=== PATIENT | female | born 1970 | race Caucasian/White ===

== ENCOUNTER → 2022-03-07 | Outpatient (CLI) | payer BC, SELFPAY ==
[2022-03-07 15:53] LABS: EXAGEN MAILED SPECIMEN
[2022-03-07 17:47] LABS: Color, Urine Yellow (Yellow); Glucose, Dipstick Normal (Normal); Ketone-Dipstick Negative (Negative); Leukocyte Esterase-Dipstick Negative /ul (Negative); Nitrite-Dipstick Negative (Negative); Occult Blood-Urine 10 /ul (Negative); Protein-Dipstick Negative (Negative); Urine Bilirubin Dipstick Negative (Negative); Urine Clarity Clear (Clear); Urine Urobilinogen Normal (Normal)
[2022-03-07 17:48] LABS: Absolute Lymphocyte Count 1.76 X10^3/uL (0.83-4.51); Absolute Neutrophil Count 4.7 X10^3/uL (2.0-7.7); Basophil# 0.02 X10^3/uL; Basophil% 0.3 % (0-1); Eosinophil# 0.41 X10^3/uL; Eosinophils% 5.5 % (0-5); Hematocrit 42.1 % (37-47); Hemoglobin 14.1 g/dL (12.0-15.0); Lymphocyte # 1.76 X10^3/ul (0.83-4.51); Lymphocyte % 23.6 % (19-41); Mean Corp Hgb Conc 33.5 g/dL (32-36); Mean Corpuscular Volume 92.5 fL (81-99); Mean Platelet Vol. 9.8 fl (6.2-12.0); Monocyte# 0.52 X10^3/uL; NRBC Flagged by Analyzer 0 % (0-5); Neutrophil # 4.73 X10^3/uL (2.7-7.7); Neutrophil % 63.3 % (47-70); Platelet Count 397 K/mm3 (150-450); RBC Distribution Width CV 12.3 % (11.6-14.6); RBC Distribution Width SD 41.6 fl (35.1-43.9); Red Blood Count 4.55 M/mm3 (4.2-5.4); White Blood Count 7.5 K/mm3 (4.4-11.0)
[2022-03-07 17:50] LABS: Erythrocyte Sedimentation Rate 20 mm/hr (0-30)
[2022-03-07 17:55] LABS: Prothrombin Time (Protime)PT. 13.2 SECONDS (11.7-14.9)
[2022-03-07 17:56] LABS: Partial Thromboplast Time 28.3 Seconds (24.1-36.2)
[2022-03-07 18:02] LABS: Protein, Urine (Random) 17.2 mg/dL (<11.9); Protein:Creat Ratio 251 mg/g CRE (0-200)
[2022-03-07 18:07] LABS: ALB/GLOB Ratio 0.9 RATIO (0.9-2.4); AST(SGOT) 89 U/L (15-37); Alanine Aminotransfer ALT/SGPT 133 U/L (13-56); Albumin, Serum 3.6 g/dL (3.2-5.0); Alkaline Phosphatase 97 U/L (45-117); Anion Gap 7 (5-15); BUN 13 mg/dL (7-18); BUN/Creat Ratio 21.7 RATIO (10-20); Calcium,Total 9.4 mg/dL (8.5-10.1); Chloride 105 mmol/L (98-107); EST Glomerular Filtration Rate 112 mL/min (>60); Est Glom Filt Rate - Afr Amer 135 mL/min (>60); Globulin 4.2 g/dL (2.2-4.2); Glucose 77 mg/dL (74-106); Potassium 3.4 mmol/L (3.5-5.1); Protein, Total 7.8 g/dL (6.4-8.2); Sodium Level 139 mmol/L (136-145)
[2022-03-08 08:46] LABS: Hepatitis B Surface Antibody Reactive; Hepatitis B Surface Antigen Non-Reactive (Nonreactive); Hepatitis C Antibody Non-Reactive (Nonreactive)
[2022-03-13 19:07] LABS: Dilute Prothrombin Time (dPT) 26.2 sec (0.0-47.6); Dilute Russell Viper Venom 32.8 sec (0.0-47.0); Hexagonal Phase Phospholipid 3 sec (0-11); Thrombin Time 18.8 sec (0.0-23.0); dPT Confirm Ratio 1.21 Ratio (0.00-1.34)
[2022-03-14 15:30] LABS: Interpretation Comment: (.)
== END | disposition home or self-care (01) ==
LOC: MTLAB 14:37
PROVIDERS: PCP Family Medicine; Referring Provider Internal Medicine Rheumatology; Visit Provider Internal Medicine Rheumatology
DX: M06.4 Inflammatory polyarthropathy (principal); L50.9 Urticaria, unspecified; R76.8 Other specified abnormal immunological findings in serum; J45.909 Unspecified asthma, uncomplicated; H91.93 Unspecified hearing loss, bilateral; Z92.89 Personal history of other medical treatment
CPT/HCPCS: 36415; 80053; 81002; 82570; 84156; 85025; 85598; 85610; 85652; 85670; 85730; 86140; 86706; 86803; 87340

== ENCOUNTER → 2022-10-26 | Outpatient (CLI) | payer BC, SELFPAY ==
[2022-10-26 11:24] LABS: Synovial Fld Mononuclear WBC # 0.177 10^3/ul; Synovial Fld Mononuclear WBC % 76.7 %; Synovial Fld Polynuclear WBC # 0.054 10^3/uL; Synovial Fld Polynuclear WBC % 23.3 %
[2022-10-26 11:25] LABS: AUTO B FLUID DILUENT BKGD CT WBC <0.1 RBC <0.01 (W<.1,R<.01); RBC /Synovial Fluid 0.009 10^6/uL (0); Source / Synovial Fluid RT KNEE; Source- Body Fluid SYNOVIAL
[2022-10-26 11:26] LABS: Appearance /Synovial Fluid Sl hazy (CLEAR); Color / Synovial Fluid Pink (Pale Yellow); Viscosity / Synovial Fluid Sl. Viscous (HIGH)
[2022-10-26 11:40] LABS: CRYSTALS, BODY FLUID NO CRYSTALS SEEN
[2022-10-26 13:42] LABS: Lymph 90 %; Neutrophil 10 % (0-25)
[2022-10-26 13:44] LABS: Body Fluid QC Type(s) BF1,BF2
[2022-10-30 13:14] LABS: Pathologist Review Reviewed
[2022-10-30 13:15] LABS: Pathologist Comment Reviewed
== END | disposition home or self-care (01) ==
LOC: LABSPEC 10:10
PROVIDERS: PCP Family Medicine; Visit Provider Internal Medicine Rheumatology
DX: M06.4 Inflammatory polyarthropathy (principal); Z79.899 Other long term (current) drug therapy
CPT/HCPCS: 87070; 87075; 87205; 89050; 89051; 89060

== ENCOUNTER → 2024-03-17 | Outpatient (CLI) | payer BC, SELFPAY ==
[2024-03-17 14:57] LABS: Synovial Fld Mononuclear WBC # 0.219 10^3/ul; Synovial Fld Mononuclear WBC % 86.6 %; Synovial Fld Polynuclear WBC # 0.034 10^3/uL; Synovial Fld Polynuclear WBC % 13.4 %
[2024-03-17 15:05] LABS: RBC /Synovial Fluid 0.012 10^6/uL (0)
[2024-03-17 15:06] LABS: AUTO B FLUID DILUENT BKGD CT WBC <0.1 RBC <0.01 (W<.1,R<.01); Source- Body Fluid SYNOVIAL
[2024-03-17 15:07] LABS: Source / Synovial Fluid RIGHT KNEE; Viscosity / Synovial Fluid Mod. Viscous (HIGH)
[2024-03-17 15:08] LABS: Appearance /Synovial Fluid Cloudy (CLEAR); Color / Synovial Fluid Pink (Pale Yellow)
[2024-03-17 15:12] LABS: CRYSTALS, BODY FLUID NO CRYSTALS SEEN
[2024-03-17 15:14] LABS: Body Fluid QC Type(s) BF1Q
[2024-03-17 16:58] LABS: Lymph 32 %; Monocyte /Synovial Fluid 18 %; Neutrophil 2 % (0-25); Other Cell /Synovial Fluid 48 %
[2024-03-18 13:15] LABS: Pathologist Comment Reviewed
== END | disposition home or self-care (01) ==
LOC: LABSPEC 12:57
PROVIDERS: PCP Family Medicine; Referring Provider Internal Medicine Rheumatology; Visit Provider Internal Medicine Rheumatology
DX: M06.09 Rheumatoid arthritis without rheumatoid factor, multiple sites (principal)
CPT/HCPCS: 87070; 87075; 87205; 89050; 89051; 89060